=== PATIENT | male | born 1980 | race Caucasian/White ===

== ENCOUNTER 2019-04-10 13:54 | Emergency (ER) | payer BC ==
[~2019-04-10] VITALS: Ht 172.7 cm; Wt 86.2 kg
[2019-04-10 14:02] VITALS: BP_SYST 130
--- NOTE | 2019-04-10 14:05 | NUR ---
Patient triaged and placed in waiting room. VSS and patient appears in no acute distress at this time. Accompanied by SELF, awaiting available bed, and MD notified of need for MSE.
--- NOTE | 2019-04-10 17:01 | NUR ---
ER at bedside examining patient.
--- NOTE | 2019-04-10 17:02 | NUR ---
Pt placed in chair
[2019-04-10 17:16] VITALS: BP_SYST 125
--- NOTE | 2019-04-10 17:17 | NUR ---
Patient given written and verbal discharge instructions and verbalizes understanding. ER MD discussed with patient the results and treatment provided. Patient in stable condition. ID arm band removed. Rx of motrin given. Patient educated on pain management and to follow up with PMD. Pain Scale 4. Opportunity for questions provided and answered. Medication side effect fact sheet provided.
== END 2019-04-10 17:16 | disposition home or self-care (01) ==
LOC: SED 13:54
DX: S00.83XA Contusion of other part of head, initial encounter (principal); Y04.2XXA Assault by strike against or bumped into by another person, initial encounter; Y93.89 Activity, other specified; Y92.89 Other specified places as the place of occurrence of the external cause; Y99.8 Other external cause status
CPT/HCPCS: 70486-TC; 99284

== ENCOUNTER 2019-05-02 13:06 | Emergency (ER) | payer BC ==
[~2019-05-02] VITALS: Ht 172.7 cm; Wt 90.7 kg
[2019-05-02 13:52] VITALS: BP_SYST 161
[2019-05-02] MEDS ORDERED: ONDANSETRON 4 MG ODT TAB PO ONE (15:00)
--- NOTE | 2019-05-02 15:00 | NUR ---
Patient to ER bed h2 to gown for evaluation. Side rails up.
--- NOTE | 2019-05-02 15:02 | NUR ---
ROXANN Martini at bedside examining patient.
--- NOTE | 2019-05-02 15:25 | NUR ---
Pt report n/v resolved while waiting to be seen.Pt tolerated PO challenge of food and fluid. Pt denies n/v/d .
[2019-05-02 15:30] VITALS: BP_SYST 160
--- NOTE | 2019-05-02 15:30 | NUR ---
Patient given written and verbal discharge instructions and verbalizes understanding. ER MD discussed with patient the results and treatment provided. Patient in stable condition. ID arm band removed. Rx of omeprazole,zofran given. Patient educated on pain management and to follow up with PMD. Pain Scale 0. Opportunity for questions provided and answered. Medication side effect fact sheet provided.
== END 2019-05-02 15:30 | disposition home or self-care (01) ==
LOC: SED 13:06
DX: R11.2 Nausea with vomiting, unspecified (principal); R03.0 Elevated blood-pressure reading, without diagnosis of hypertension
CPT/HCPCS: 99283